=== PATIENT | male | born 1945 | race Caucasian/White ===

== ENCOUNTER 2018-12-22 21:33 | Emergency (ER) | payer OTHER ==
[2018-12-22] MEDS ORDERED: Cephalexin 500 MG CAP ONE (22:24)
[2018-12-22] MEDS ORDERED: predniSONE 20 MG TAB ONE (22:24)
[2018-12-22] MEDS ORDERED: Sulfameth/Trimethoprim DS 800-160mg TAB ONE (22:24)
== END 2018-12-22 22:45 | disposition home or self-care (01) ==
LOC: MADERS 21:33
DX: L30.9 Dermatitis, unspecified (principal); E11.9 Type 2 diabetes mellitus without complications; E78.5 Hyperlipidemia, unspecified; E78.00 Pure hypercholesterolemia, unspecified; I11.0 Hypertensive heart disease with heart failure; I50.9 Heart failure, unspecified; G20 Parkinson's disease
CPT/HCPCS: 99282; J7512

== ENCOUNTER 2023-04-28 10:12 | Emergency (ER) | payer MEDICARE | END 2023-04-28 12:30 | disposition home or self-care (01) | LOC: MADERS 10:12 | DX: J06.9 Acute upper respiratory infection, unspecified (principal); I11.0 Hypertensive heart disease with heart failure; I50.9 Heart failure, unspecified; E78.00 Pure hypercholesterolemia, unspecified; Z79.899 Other long term (current) drug therapy | CPT/HCPCS: 71045; 87635 ==